=== PATIENT | female | born 1955 | race Two or more races ===

== ENCOUNTER 2022-03-07 10:25 | Day surgery (SDC) | payer MEDICARE, OTHER ==
[~2022-03-07] VITALS: Ht 152.4 cm; Wt 90.7 kg
[2022-03-07] MEDS ORDERED: IV NS 0.9% 250 ML IV ONE (11:10)
[2022-03-07] MEDS ORDERED: IOHEXOL-350 100 ML VIAL IV ONE (11:10)
[2022-03-07] MEDS: METOPROLOL TARTRATE INJ 5 MG/5 ML AMPUL IVP PRN ×3 (11:15→11:30)
[2022-03-07] MEDS ORDERED: NITROGLYCERIN 0.4 MG/TAB BOTTLE ONE (11:28)
[2022-03-07] MEDS ORDERED: METOPROLOL TARTRATE INJ 5 MG/5 ML AMPUL ONE (11:28)
[2022-03-07] MEDS: NITROGLYCERIN 0.4 MG/TAB BOTTLE SL PRN ×2 (11:30→11:35)
[2022-03-07 11:35] VITALS: BP 130/52
== END 2022-03-07 11:52 | disposition short-term general hospital (02) ==
LOC: CT 10:25
PROVIDERS: ATTEND Internal Medicine Interventional Cardiology
DX: I25.10 Atherosclerotic heart disease of native coronary artery without angina pectoris (principal); R91.1 Solitary pulmonary nodule; R07.9 Chest pain, unspecified
CPT/HCPCS: 75574; J3490; J7050; Q9967